=== PATIENT | female | born 2005 | race Caucasian/White ===

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

== ENCOUNTER 2024-07-13 15:56 | Outpatient (REF) | payer BC, SELFPAY ==
[2024-07-15 11:56] LABS: Chlamydia Result Negative (Negative); GC Result Negative (Negative)
== END 2024-07-13 15:57 | disposition home or self-care (01) ==
LOC: LBN 15:56
PROVIDERS: Visit Provider Obstetrics & Gynecology
DX: Z11.3 Encounter for screening for infections with a predominantly sexual mode of transmission (principal); Z30.41 Encounter for surveillance of contraceptive pills; N93.0 Postcoital and contact bleeding
CPT/HCPCS: 87491; 87591

== ENCOUNTER 2024-09-08 01:38 | Outpatient (CLI) | payer BC, SELFPAY ==
[2024-09-08 15:11] LABS: Abs Immature Grans 0.02 10^3/uL (0.0-0.06); Absolute Basophil Count 0.01 10^3/uL (0.0-0.2); Absolute Lymphocyte Count 1.79 10^3/uL (1.2-3.4); Absolute Monocyte Count 0.37 10^3/uL (0.1-0.8); Absolute Neutrophil Count 4.67 10^3/uL (1.2-6.7); Basophils % 0.1 %; HCT 37.7 % (36.0-46.0); HGB 12.6 g/dL (11.2-15.7); Immature Grans % 0.3 %; Lymphocytes % 26.1 %; MCH 29.4 pg (27.0-33.0); MCHC 33.4 % (32.0-36.0); MCV 88 fL (80-95); MPV 12.5 fL (8.0-11.0); Monocytes % 5.4 %; Neutrophils % 68.1 %; Platelet Count 166 10^3/uL (130-400); RBC 4.29 10^6/uL (3.93-5.22); RDW 13.1 % (11.7-14.6); RDW-SD 41.9 fL; WBC 6.86 10^3/uL (4.4-10.8)
[2024-09-08 15:21] LABS: Hemoglobin A1C 5.3 % (<5.7)
[2024-09-08 16:10] LABS: Cholesterol 152 mg/dL (<200); HDL Cholesterol 71 mg/dL (>or=50)
[2024-09-08 16:14] LABS: Triglyceride <25 mg/dL (<150)
[2024-09-08 16:49] LABS: LDL CHOLESTEROL 79 mg/dL (<100)
== END 2024-09-08 01:39 | disposition home or self-care (01) ==
PROVIDERS: PCP Student in an Organized Health Care Education/Training Program; Visit Provider Student in an Organized Health Care Education/Training Program
DX: T88.7XXA Unspecified adverse effect of drug or medicament, initial encounter (principal); R53.83 Other fatigue
CPT/HCPCS: 36415; 80061; 83721; 83036; 85025

== ENCOUNTER 2025-05-16 08:16 | Outpatient (CLI) | payer BC, SELFPAY ==
--- NOTE | 2025-05-16 08:15 | RT.EKG_ITS ---
APPROVED REPORT Exam: Resting ECG Reason for Exam: Monitor for QT elongation Patient Location: O HR:75 bpm ECG Measurements Heart Rate 75 AXIS NJ 157 P 55 QRSd 80 QRS 47 QT 368 T 32 QTc 411 Conclusion Sinus rhythm...normal P axis, V-rate 50- 99 Normal Electrocardiogram
== END 2025-05-16 08:17 | disposition home or self-care (01) ==
LOC: DI.KIM 08:19
PROVIDERS: PCP Student in an Organized Health Care Education/Training Program; Visit Provider Nurse Practitioner Family
DX: Z79.899 Other long term (current) drug therapy (principal)
CPT/HCPCS: 93010

== ENCOUNTER 2025-05-26 01:51 | Outpatient (CLI) | payer BC, SELFPAY ==
[2025-05-26 11:45] LABS: ALT 17 U/L (10-49); AST 22 U/L (<34); Albumin 4.3 g/dL (3.2-5.0); Alkaline Phosphatase 55 U/L (46-116); Anion Gap 9.4 mmol/L (3-11); BUN 8 mg/dL (9-23); Bilirubin, Total 0.30 mg/dL (0.2-1.2); CO2 25.6 mmol/L (20.0-31.0); Calcium 8.9 mg/dL (8.3-10.6); Chloride 107 mmol/L (98-107); Glucose 82 mg/dL (74-106); Potassium 3.6 mmol/L (3.5-5.1); Sodium 142 mmol/L (136-145); Total Protein 7.3 g/dL (5.7-8.2)
[2025-05-26 11:47] LABS: TSH (W/Ref FT4) 2.05 uIU/mL (0.55-4.78)
== END 2025-05-26 01:52 | disposition home or self-care (01) ==
LOC: LBO 01:52
PROVIDERS: PCP Nurse Practitioner Family; Referring Provider Nurse Practitioner Family; Visit Provider Nurse Practitioner Family
DX: Z79.899 Other long term (current) drug therapy (principal)
CPT/HCPCS: 36415; 80053; 84443